=== PATIENT | female | born 1960 | race Caucasian/White ===

== ENCOUNTER → 2024-08-22 | Outpatient (CLI) | payer OTHER ==
[~2024-08-22] MED LIST: Iohexol 300 - 100 ML VIAL IV ONE; NS 100 ML IV ONE
== END ==
LOC: RAD 09:55 → LAB 09:55 → RAD 11:30
DX: G05.3 Encephalitis and encephalomyelitis in diseases classified elsewhere (principal); K57.30 Diverticulosis of large intestine without perforation or abscess without bleeding; R59.1 Generalized enlarged lymph nodes
CPT/HCPCS: Q9967